=== PATIENT | male | born 1985 | race Caucasian/White ===

== ENCOUNTER 2017-09-21 15:02 | Emergency (ER) | payer MEDICAID ==
[2017-09-21 15:08] VITALS: RESP 20
[2017-09-21] MEDS ORDERED: NS 1,000 ML IV ONE ×2 (15:28→16:01)
--- NOTE | 2017-09-21 15:58 | EDPHY ---
HPI/HX/ROS/PE/MDM Narrative: CHIEF COMPLAINT: Shaky, dizzy HPI: This patient is a healthy 32 year old male complaining of headache, shakiness, and dizziness. He has had a migraine for two days. Today, he was at the gym working out and became dizzy and shaky when he got off the treadmill. He as worried he was going to pass out, but did not have a syncopal episode. He also had bilateral flank pains, sharper on the left. He denies history of kidney stones or other kidney problems. The patient reports he has had a "problem with hypoglycemia". He did eat breakfast and had a granola bar for a snack prior to working out. He denies fever, chest pain, shortness of breath, vomiting, diarrhea, hematuria, blood in his stool, or other associated symptoms. REVIEW OF SYSTEMS: Aside from elements discussed in the HPI, a comprehensive 10-point review of systems was reviewed and is negative. PMH: Denies. SOCIAL HISTORY: Friend at bedside. Released from [facility] two weeks ago. Lives in [place]. PHYSICAL EXAM: General:Patient is alert, in no acute distress. ENT:Eyes are normal to inspection. ENT inspection normal. Neck: Normal inspection. Full range of motion. Respiratory:No respiratory distress. Breath sounds normal bilaterally. Cardiovascular: Regular rate and rhythm. Strong peripheral pulses. Normal cap refill. Abdomen:The abdomen is nontender to palpation. There are no peritoneal signs. There are normal bowel sounds. Back: Normal to inspection. Mild left flank tenderness. Skin: Normal color. No rash. Warm and dry. Extremities: Normal appearance. Full range of motion. Neuro: Oriented x3. Normal motor function. Normal sensory function. ED Course: 32 y/o male presents following an episode of headache, shakiness, and dizziness. Plan for EKG, labs including CBC, chemistries, UA. Plan to administer 1L IV NS. EKG was ordered and interpreted by myself. Please see [employer] system for official reading. Reviewed laboratory studies. All are within normal limits. No electrolyte imbalance. No hematuria or UTI. BGL 95. Reassessed patient. He is feeling well. Plan to discharge home in good condition. Follow up and return precautions discussed. He is comfortable with this plan. MDM: This patient presents with what sounds like an episode of near syncope. We performed an extensive workup, including ECG, troponin, CXR and other labs. I see no evidence of DKA, ACS, infectious process, arrhythmia, or anemia. Patient 's symptoms have resolved after IV fluids. I think he is safe for further outpatient workup. - Data Points Laboratory Results: Laboratory Results 09/21/17 15:00 09/21/17 15:00 09/21/17 09/21/17 09/21/17 16:32 15:00 15:00 WBC 7.97 10^3/uL 10^3/uL (3.80-9.50) RBC 5.62 10^6/uL 10^6/uL (4.40-6.38) Hgb 16.6 g/dL g/dL (13.7-17.5) Hct 47.7 % % (40.0-51.0) MCV 84.9 fL fL (81.5-99.8) MCH 29.5 pg pg (27.9-34.1) MCHC 34.8 g/dL g/dL (32.4-36.7) RDW 12.5 % % (11.5-15.2) Plt Count 271 10^3/uL 10^3/uL (150-400) MPV 9.1 fL fL (8.7-11.7) Neut % (Auto) 62.5 % % (39.3-74.2) Lymph % (Auto) 28.5 % % (15.0-45.0) [place] % (Auto) 7.2 % % (4.5-13.0) Eos % (Auto) 1.0 % % (0.6-7.6) Baso % (Auto) 0.5 % % (0.3-1.7) Nucleat RBC Rel Count 0.0 % % (0.0-0.2) Absolute Neuts (auto) 4.99 10^3/uL 10^3/uL (1.70-6.50) Absolute Lymphs (auto) 2.27 10^3/uL 10^3/uL (1.00-3.00) Absolute Monos (auto) 0.57 10^3/uL 10^3/uL (0.30-0.80) Absolute Eos (auto) 0.08 10^3/uL 10^3/uL (0.03-0.40) Absolute Basos (auto) 0.04 10^3/uL 10^3/uL (0.02-0.10) Absolute Nucleated RBC 0.00 10^3/uL 10^3/uL (0-0.01) Immature Gran % 0.3 % % (0.0-1.1) Immature Gran # 0.02 10^3/uL 10^3/uL (0.00-0.10) Sodium 142 mEq/L mEq/L (135-145) Potassium 4.5 mEq/L mEq/L (3.5-5.2) Chloride 104 mEq/L mEq/L (97-110) Carbon Dioxide 25 mEq/l mEq/l (22-31) Anion Gap 13 mEq/L mEq/L (8-16) BUN 16 mg/dL mg/dL (7-23) Creatinine 0.9 mg/dL mg/dL (0.7-1.3) Estimated GFR > 60 Glucose 95 mg/dL mg/dL (70-100) Calcium 9.4 mg/dL mg/dL (8.5-10.4) Urine Color PALE YELLOW Urine Appearance CLEAR Urine pH 6.0 (5.0-7.5) Ur Specific [place] 1.010 (1.002-1.030) Urine Protein NEGATIVE (NEGATIVE) Urine Ketones NEGATIVE (NEGATIVE) Urine Blood NEGATIVE (NEGATIVE) Urine Nitrate NEGATIVE (NEGATIVE) Urine Bilirubin NEGATIVE (NEGATIVE) Urine Urobilinogen NEGATIVE EU EU (0.2-1.0) Ur Leukocyte Esterase NEGATIVE (NEGATIVE) Urine Glucose NEGATIVE (NEGATIVE) Medications Given: Discontinued Medications Sodium Chloride (Ns) 1,000 mls @ 0 mls/hr IV ONCE ONE PRN Reason: Wide Open Stop: 09/21/17 15:29 Last Admin: 09/21/17 15:36 Dose: 1,000 mls General Time Seen by Provider: 09/21/17 15:26 Initial Vital Signs: Initial Vital Signs Temperature (C) 37 C 09/21/17 15:05 Heart Rate 84 09/21/17 15:05 Respiratory Rate 20 09/21/17 15:05 O2 Sat (%) 95 09/21/17 15:05 O2 Delivery Mode Room Air Allergies/Adverse Reactions: codeine Allergy (Verified 09/21/17 15:05) Home Medications: Medication Instructions Recorded NK [No Known Home Meds] 09/21/17 Departure - Departure Disposition: Home, Routine, Self-Care Clinical Impression: Near syncope Condition: Good Instructions: Acute Rash (ED), Near Syncope (ED), Flank Pain (ED) Additional Instructions: Follow-up with your primary doctor within 72 hours. Return to the Emergency Department for fever, chest pain, shortness of breath, increasing pain or other worsening of condition. Referrals: Lv Bedoya MD [Medical Doctor] - As per Instructions Report Scribed for: Galen Joseph Report Scribed by: Gretchen Jacobsen Date of Report: 09/21/17 Time of Report: 15:55 Physician Review and Approval Statement: Portions of this note were transcribed by an ED scribe. I personally performed the history, physical exam, and medical decision making; and confirm the accuracy of the information in the transcribed note.
[2017-09-21 16:20] LABS: PLATELET COUNT 271 10^3/uL (150-400)
--- NOTE | 2017-09-21 17:00 | CPEKG ---
Heart Rate: 66 RR Interval: 909 P-R Interval: 160 QRSD Interval: 100 QT Interval: 388 QTC Interval: 407 P [place]: 40 QRS [place]: 58 T Wave [place]: 23 EKG Severity - NORMAL ECG - EKG Impression: SINUS RHYTHM Electronically Signed By: Argelia Douglass 21-Sep-2017 20:36:20
[2017-09-21 17:18] VITALS: BP 147/104; PULSE 69; TEMP 98.2; O2SAT 93
== END 2017-09-21 17:18 | disposition home or self-care (01) ==
DX: R55 Syncope and collapse (principal)